=== PATIENT | female | born 1960 | race Caucasian/White ===

== ENCOUNTER 2020-07-17 13:39 | Inpatient (IN) ==
[2020-07-17] MEDS ORDERED: *HR* HYDROmorphone (PF) 1 MG/ML SYRINGE IVP ONE ×2 (13:46→16:24)
[2020-07-17] MEDS ORDERED: Ondansetron 4 MG/2 ML VIAL IVP ONE (13:46)
[2020-07-17 14:37] LABS: Basophils # 0.1 K/mcL (0.0-0.2); Basophils % 0.6 %; Eosinophils % 0.4 %; Hematocrit 41.6 % (35.3-44.9); Hemoglobin 13.7 g/dL (11.5-15.4); Immature Granulocytes % 0.4 % (0-4); Lymphocytes # 1.8 K/mcL (0.6-4.6); Lymphocytes % 18.9 %; Mean Corpuscular HGB Conc 32.9 g/dL (31.6-35.5); Mean Corpuscular Hemoglobin 33.2 pg (28.0-33.3); Mean Corpuscular Volume 100.7 fL (83.0-100.0); Mean Platelet Volume 10.8 fL (9.4-12.4); Monocytes # 0.6 K/mcL (0.0-1.3); Monocytes % 6.7 %; Neutrophils # 6.8 K/mcL (1.6-8.9); Platelet Count 255 K/mcL (140-400); Red Blood Count 4.13 M/mcL (3.82-4.97); Red Cell Distribution Width 11.9 % (11.5-14.5); White Blood Count 9.3 K/mcL (4.3-11.1)
[2020-07-17] MEDS ORDERED: Isovue-370 500 ML BOTTLE IVP ONE (14:38)
[2020-07-17 14:57] LABS: Alanine Aminotransferase 11 Units/L (7-52); Albumin 3.9 g/dL (3.5-5.7); Albumin/Globulin Ratio 1.5 (1.1-2.2); Alkaline Phosphatase 44 Units/L (34-104); Aspartate Amino Transferase 11 Units/L (13-39); BUN/Creatinine Ratio 23 (6-26); Bilirubin,Direct 0.1 mg/dL (0.0-0.2); Bilirubin,Indirect 0.4 mg/dL (0.0-1.0); Bilirubin,Total 0.5 mg/dL (0.3-1.0); Blood Urea Nitrogen 12 mg/dL (6-20); Calcium 9.1 mg/dL (8.6-10.3); Carbon Dioxide 26 mEq/L (23-29); Chloride 105 mEq/L (98-107); Globulin 2.6 g/dL (2.4-3.5); Glucose 105 mg/dL (70-105); Lipase 22 Units/L (11-82); Osmolality,Calculated 290 (280-300); Potassium 3.4 mEq/L (3.5-5.1); Sodium 140 mEq/L (136-145); Total Protein 6.5 g/dL (6.4-8.9); eGFR For African Americans > 60 (> 60); eGFR For Non-African Americans > 60 (> 60)
[2020-07-17 14:57] LABS: Amorphous Sediment,Urine Few per hpf (None-Few); Bacteria,Urine Few per hpf (None-Few); Bilirubin,Urine Negative (Negative); Blood,Urine Trace (Negative); Clarity,Urine Turbid (Clear); Color,Urine Light-Yellow (Yellow); Glucose,Urine (UA) Normal (Normal); Ketones,Urine Negative (Negative); Leukocyte Esterase,Urine Small (Negative); Mucus,Urine Few per lpf (None-Few); Nitrite,Urine Negative (Negative); PH,Urine 7.5 pH Units (5.0-8.0); Protein,Urine Trace mg/dL (Neg-Trace); Squamous Epithelial Cell,Urine Few per hpf (None-Few); Urobilinogen,Urine Normal (Normal)
[2020-07-17] MEDS ORDERED: 0.9 % Sodium Chloride 1,000 ML IVC ONE (17:26)
[2020-07-17] MEDS: Piperacillin/Tazobactam 3.375 GM in 0.9 % Sodium Chloride Mini Bag 100 ML IVPB SCH (18:23)
[2020-07-17] MEDS: D5% in 0.45% NACL w KCl 20 MEQ/1,000 ML MLS IVC SCH (20:56)
[2020-07-18] MEDS: Piperacillin/Tazobactam 3.375 GM in 0.9 % Sodium Chloride Mini Bag 100 ML IVPB SCH (02:11)
[2020-07-18] MEDS ORDERED: Pantoprazole 40 MG VIAL IVP SCH ×2 (02:46→06:00)
[2020-07-18] MEDS ORDERED: Ondansetron 4 MG/2 ML VIAL IVP SCH (06:00)
[2020-07-18] MEDS ORDERED: *HR* Enoxaparin 40 MG/0.4 ML SYRINGE SQ SCH (06:00)
[2020-07-18] MEDS ORDERED: *HR* Midazolam HCl 2 MG/2 ML VIAL IVP PRN (07:07)
[2020-07-18] MEDS ORDERED: *HR* FentaNYL (PF) 100 MCG/2 ML VIAL IVP PRN (07:07)
[2020-07-18] MEDS ORDERED: *HR* HYDROmorphone PF 0.5 MG/0.5 ML SYRINGE IVP PRN (07:07)
[2020-07-18] MEDS ORDERED: *HR* Promethazine 25 MG/ML VIAL IVP PRN (07:07)
[2020-07-18] MEDS ORDERED: *HR* Meperidine 25 MG/ML SYRINGE IVP PRN (07:07)
[2020-07-18] MEDS ORDERED: Isovue-300 50ML VIAL ONE (07:28)
[2020-07-18] MEDS ORDERED: *HR* Propofol 200 MG/20 ML VIAL IVP ONE (07:35)
[2020-07-18] MEDS ORDERED: *HR* FentaNYL (PF) 100 MCG/2 ML VIAL ONE ×2 (07:35→08:23)
[2020-07-18] MEDS ORDERED: *HR* Midazolam HCl 2 MG/2 ML VIAL ONE (07:35)
[2020-07-18] MEDS ORDERED: Scopolamine Patch 1.5 MG PATCH.TD72 TD ONE (07:38)
[2020-07-18] MEDS ORDERED: Famotidine 20 MG/2 ML VIAL IVP ONE (07:38)
[2020-07-18] MEDS ORDERED: *HR* Succinylcholine 200 MG/10 ML VIAL IVP ONE (07:38)
[2020-07-18] MEDS ORDERED: Lidocaine -MPF 2% 2 ML VIAL ONE (07:38)
[2020-07-18] MEDS ORDERED: *HR* Rocuronium Bromide 50 MG/5 ML VIAL ONE (07:38)
[2020-07-18] MEDS ORDERED: Scopolamine Patch 1.5 MG PATCH.TD72 ONE (07:40)
[2020-07-18] MEDS ORDERED: Dexamethasone 4 MG/ML VIAL ONE (07:40)
[2020-07-18] MEDS ORDERED: Ondansetron 4 MG/2 ML VIAL ONE (07:40)
[2020-07-18] MEDS ORDERED: Famotidine 20 MG/2 ML VIAL ONE (07:44)
[2020-07-18] MEDS ORDERED: Ketorolac 30 MG/ML VIAL ONE (08:36)
[2020-07-18] MEDS: D5% in 0.45% NACL w KCl 20 MEQ/1,000 ML MLS IVC SCH ×3 (08:42→22:49)
[2020-07-18] MEDS: Ondansetron ODT 4 MG TAB.RAPDIS SL ONE ×2 (08:43→10:24)
[2020-07-18] MEDS: estradioL 1 MG TABLET PO SCH (14:21)
[2020-07-18] MEDS: Pantoprazole 40 MG VIAL IVP SCH (18:12)
[2020-07-18] MEDS ORDERED: Simethicone 80 MG TAB.CHEW PO PRN (18:24)
[2020-07-19] MEDS: Pantoprazole 40 MG VIAL IVP SCH (05:06)
[2020-07-19 05:49] LABS: Basophils % 0.3 %; Hematocrit 37.3 % (35.3-44.9); Immature Granulocytes % 0.3 % (0-4); Lymphocytes # 1.8 K/mcL (0.6-4.6); Lymphocytes % 15.2 %; Mean Corpuscular HGB Conc 31.6 g/dL (31.6-35.5); Mean Corpuscular Hemoglobin 32.6 pg (28.0-33.3); Mean Platelet Volume 10.6 fL (9.4-12.4); Monocytes # 0.8 K/mcL (0.0-1.3); Monocytes % 6.8 %; Platelet Count 207 K/mcL (140-400); Red Blood Count 3.62 M/mcL (3.82-4.97); Red Cell Distribution Width 11.9 % (11.5-14.5); Segmented Neutrophils % 77.4 %; White Blood Count 11.6 K/mcL (4.3-11.1)
[2020-07-19 05:52] LABS: Hemoglobin 11.8 g/dL (11.5-15.4)
[2020-07-19] MEDS ORDERED: *HR* Enoxaparin 40 MG/0.4 ML SYRINGE SQ SCH (06:00)
[2020-07-19 06:05] LABS: BUN/Creatinine Ratio 12 (6-26); Blood Urea Nitrogen 6 mg/dL (6-20); Calcium 8.2 mg/dL (8.6-10.3); Carbon Dioxide 27 mEq/L (23-29); Chloride 105 mEq/L (98-107); Glucose 121 mg/dL (70-105); Osmolality,Calculated 283 (280-300); Potassium 3.6 mEq/L (3.5-5.1); Sodium 137 mEq/L (136-145); eGFR For African Americans > 60 (> 60); eGFR For Non-African Americans > 60 (> 60)
[2020-07-19 07:20] VITALS: BP 129/76
[2020-07-19] MEDS: estradioL 1 MG TABLET PO SCH (08:54)
== END 2020-07-19 11:00 | disposition home or self-care (01) | DRG 419 ==
LOC: EMEROOARM 13:39 → 3ANU 13:39
PROVIDERS: ADMIT Surgery; ATTEND Surgery